=== PATIENT | male | born 1975 | race Caucasian/White ===

== ENCOUNTER 2017-01-09 12:44 | Emergency (ER) | payer BC ==
[2017-01-09] MEDS ORDERED: Sodium Chloride 0.9% 10 ML Syringe FLUSH PRN (14:58)
[2017-01-09] MEDS ORDERED: Sodium Chloride 0.9% 1,000 ML IV ONE (14:59)
--- NOTE | 2017-01-09 15:03 | EDM.PDOC ---
ED HPI GENERAL MEDICAL PROBLEM - General Chief Complaint: ENT Problem Stated Complaint: [id number] FEVER HAD STREP NOT FEELING WELL Time Seen by Provider: 01/09/17 14:59 Source of Information: Reports: Patient History Limitations: Reports: No Limitations - History of Present Illness INITIAL COMMENTS - FREE TEXT/NARRATIVE: 41 yo male presents with fever of 102 yesterday and " not feeling well " today. States that he was recently treated with Penicillin for strep throat, ended treatment on . States that he feels symptoms have not improved. 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, NSAIDS Throat Pain Score (Numeric/FACES): 4 - Related Data Allergies Allergy/AdvReac Type Severity Reaction Status Date / Time No Known Allergies Allergy Verified 07/29/16 06:56 Home Meds: Home Meds Acetaminophen [Tylenol Extra Strength] 500 mg PO Q6H PRN 07/28/16 [History] Amoxicillin/Potassium Clav [Amox-Clav 875-125 mg Tablet] 1 tab PO Q12H 07/28/16 [History] Fluticasone Propionate [Fluticasone Propionate] 1 spray NASBOTH ASDIRECTED PRN 07/28/16 [History] Ibuprofen 400 mg PO Q6H 07/28/16 [History] Phenylephrine/Dm/Acetaminop/Gg [Tylenol Cold & Flu Severe Cplt] 1 tab PO ASDIRECTED PRN 07/28/16 [History] Past Medical History HEENT History: Reports: Allergic Rhinitis, Sinusitis Cardiovascular History: Reports: None Respiratory History: Reports: None Gastrointestinal History: Reports: Colon Polyp, Helicobacter Pylori Genitourinary History: Reports: None Musculoskeletal History: Reports: Other (See Below) Other Musculoskeletal History: HX OF PLANTAR FASCIITIS BILAT. HEEL SPURS BILAT Neurological History: Reports: None Psychiatric History: Reports: None Endocrine/Metabolic History: Reports: Obesity/BMI 30+ Hematologic History: Reports: None Immunologic History: Reports: None Oncologic (Cancer) History: Reports: None - Infectious Disease History Infectious Disease History: Reports: Chicken Pox - Past Surgical History Head Surgeries/Procedures: Reports: None Cardiovascular Surgical History: Reports: None Musculoskeletal Surgical History: Reports: Arthroscopic Knee, Other (See Below) Social & Family History - Tobacco Use Smoking Status *Q: Unknown Ever Smoked Second Hand Smoke Exposure: No - Caffeine Use Caffeine Use: Reports: Soda Other Caffeine Use: AVERAGE INTAKE OF 2-3 BOTTLES OF [place] DAILY - Alcohol Use Days Per Week of Alcohol Use: 1 Number of Drinks Per Day: 6 Total Drinks Per Week: 6 - Recreational Drug Use Recreational Drug Use: Yes Drug Use in Last 12 Months: No ED ROS ENT - Review of Systems Review Of Systems: ROS reveals no pertinent complaints other than HPI. ED EXAM, ENT - Physical Exam Exam: See Below Exam Limited By: No Limitations General Appearance: Alert, WD/WN, No Apparent Distress Eye Exam: Bilateral Eye: PERRL Ears: Normal External Exam, Normal Canal, Hearing Grossly Normal, Normal TMs Nose: Normal Inspection, Normal Mucousa, No Blood Mouth/Throat: Pharyngeal Erythema, Tonsillar Erythema, Tonsillar Exudates, Tonsillar Swelling (2+ bilaterally ) Head: Atraumatic, Normocephalic Neck: Normal Inspection, Supple, Non-Tender, Full Range of Motion Respiratory/Chest: No Respiratory Distress, Lungs Clear, Normal Breath Sounds, No Accessory Muscle Use, Chest Non-Tender Cardiovascular: Normal Peripheral Pulses, Regular Rate, Rhythm, No Edema, No Gallop, No JVD, No Murmur, No Rub GI/Abdominal: Normal Bowel Sounds, Soft, Non-Tender, No Organomegaly, No Distention, No Abnormal Bruit, No Mass Extremities: Normal Inspection, Normal Range of Motion, Non-Tender, No Pedal Edema, Normal Capillary Refill Neurological: Alert, Oriented, CN II-XII Intact, Normal Cognition, Normal Gait, No Motor/Sensory Deficits Skin: Warm, Dry, Intact, Normal Color, No Rash Course - Vital Signs Last Recorded V/S: Last Vital Signs Temp 100.2 F 01/09/17 16:32 Pulse 92 01/09/17 16:32 Resp 20 01/09/17 16:32 BP 130/80 01/09/17 16:32 Pulse Ox 97 01/09/17 16:32 - Orders/Labs/Meds Orders: Active Orders 24 hr Category Date Time Status Chest 2V [CR] Stat Exams 01/09/17 14:58 Taken CULTURE BLOOD [BC] Stat Lab 01/09/17 15:10 Received CULTURE BLOOD [BC] Stat Lab 01/09/17 15:15 Received CULTURE THROAT [RM] Stat Lab 01/09/17 15:20 Received Sodium Chloride 0.9% [Saline Flush] Med 01/09/17 14:58 Active 10 ml FLUSH ASDIRECTED PRN Blood Culture x2 Reflex Set [OM.PC] Stat Oth 01/09/17 14:58 Ordered Saline Lock Insert [OM.PC] Stat Oth 01/09/17 14:57 Ordered Medication Orders Sodium Chloride (Saline Flush) 10 ml FLUSH ASDIRECTED PRN PRN Reason: Keep Vein Open Last Admin: 01/09/17 15:24 Dose: 10 ml Labs: Laboratory Tests 01/09/17 01/09/17 01/09/17 Range/Units 15:10 15:10 15:10 WBC 16.6 H (5.0-10.0) 10^3/uL RBC 4.91 (4.6-6.2) 10^6/uL Hgb 15.4 (14.0-18.0) g/dL Hct 45.7 (40.0-54.0) % MCV 93.1 (80-100) fL MCH 31.4 (27.0-34.0) pg MCHC 33.7 (33.0-35.0) g/dL Plt Count 182 (150-450) 10^3/uL Neut % (Auto) 87.5 H (42.2-75.2) % Lymph % (Auto) 7.7 L (20.5-50.1) % Bradley % (Auto) 4.5 (2-8) % Eos % (Auto) 0.2 L (1.0-3.0) % Baso % (Auto) 0.1 (0.0-1.0) % Sodium 139 (135-145) mmol/L Potassium 4.3 (3.6-5.0) mmol/L Chloride 103 (101-111) mmol/L Carbon Dioxide 24.0 (21.0-31.0) mmol/L Anion Gap 16.3 BUN 13 (7-18) mg/dL Creatinine 1.0 (0.6-1.3) mg/dL Est Cr Clr Drug Dosing 95.00 mL/min Estimated GFR (MDRD) > 60 Glucose 92 (74-105) mg/dL Lactic Acid 0.9 (0.5-2.2) mmol/L Calcium 9.3 (8.4-10.2) mg/dl Meds: Medications Generic Name Dose Route Start Last Admin Trade Name Frenatalia PRN Reason Stop Dose Admin Sodium Chloride 10 ml 01/09/17 14:58 01/09/17 15:24 Saline Flush FLUSH 10 ml ASDIRECTED PRN Administration Keep Vein Open Discontinued Medications Generic Name Dose Route Start Last Admin Trade Name Leela PRN Reason Stop Dose Admin Acetaminophen 650 mg 01/09/17 15:29 01/09/17 15:35 Tylenol PO 01/09/17 15:30 650 mg NOW ONE Administration Sodium Chloride 1,000 mls @ 999 mls/hr 01/09/17 14:59 01/09/17 15:24 Normal Saline IV 01/09/17 15:59 999 mls/hr .BOLUS ONE Administration Ceftriaxone Sodium 1 gm/ 50 mls @ 100 mls/hr 01/09/17 16:09 01/09/17 16:19 Sodium Chloride IV 01/09/17 16:38 100 mls/hr ONETIME ONE Administration - Re-Assessments/Exams Free Text/Narrative Re-Assessment/Exam: 01/09/17 17:22 Strep positive. Rocephine given IV and keflex for 10 day course. Departure - Departure Time of Disposition: 17:25 Disposition: Home, Self-Care 01 Condition: Good Clinical Impression: Strep pharyngitis - Discharge Information Instructions: Strep Throat Forms: ED Department Discharge, ED Department Discharge Additional Instructions: Take the new course of antibiotics for 10 days. return for any worsening symptoms. Continue to take ibuprofen and tylenol for fever. Follow up in5-7 days in clinic. We have swabbed your throat and the results should be returned by the end of the week. We will let you know if we need to change the antibiotic. - My Orders Last 24 Hours: My Active Orders 01/09/17 14:57 Saline Lock Insert [OM.PC] Stat 01/09/17 14:58 Chest 2V [CR] Stat Sodium Chloride 0.9% [Saline Flush] 10 ml FLUSH ASDIRECTED PRN Blood Culture x2 Reflex Set [OM.PC] Stat 01/09/17 15:10 CULTURE BLOOD [BC] Stat 01/09/17 15:15 CULTURE BLOOD [BC] Stat 01/09/17 15:20 CULTURE THROAT [RM] Stat - Assessment/Plan Last 24 Hours: My Active Orders 01/09/17 14:57 Saline Lock Insert [OM.PC] Stat 01/09/17 14:58 Chest 2V [CR] Stat Sodium Chloride 0.9% [Saline Flush] 10 ml FLUSH ASDIRECTED PRN Blood Culture x2 Reflex Set [OM.PC] Stat 01/09/17 15:10 CULTURE BLOOD [BC] Stat 01/09/17 15:15 CULTURE BLOOD [BC] Stat 01/09/17 15:20 CULTURE THROAT [RM] Stat
[2017-01-09] MEDS ORDERED: Acetaminophen 325 MG Tab PO ONE (15:29)
[2017-01-09 15:57] LABS: CHLORIDE,CL 103 mmol/L (101-111); SODIUM,NA 139 mmol/L (135-145)
[2017-01-09] MEDS ORDERED: cefTRIAXone 1 GM in Sodium Chloride 0.9% 50 ML IV ONE (16:09)
[2017-01-09 16:34] VITALS: BP 130/80
== END 2017-01-09 17:37 | disposition home or self-care (01) ==
LOC: DL.ED 12:44
DX: J02.0 Streptococcal pharyngitis (principal); E66.9 Obesity, unspecified; Z79.899 Other long term (current) drug therapy
CPT/HCPCS: 36415; 71020; 80048; 83605; 85025; 87040; 87070; 87430; 96361; 96365; 99284; A9270; J0696; J7030; J7050; 87077

== ENCOUNTER 2023-05-22 23:43 | Emergency (ER) | payer BC ==
[2023-05-22] MEDS ORDERED: Sodium Chloride 0.9% 10 ML Syringe FLUSH PRN (23:53)
[2023-05-23 00:01] LABS: BASOPHILS PERCENT AUTO 0.5 % (0.0-1.0); EOSINOPHILS PERCENT AUTO 4.5 % (1.0-3.0); HEMATOCRIT 47.2 % (40.0-54.0); HEMOGLOBIN 16.6 g/dL (14.0-18.0); LYMPHOCYTES PERCENT AUTO 44.2 % (20.5-50.1); MEAN CORPUSCULAR HEMOGLOBIN 32.5 pg (27.0-34.0); MEAN CORPUSCULAR HGB CONC 35.2 g/dL (33.0-35.0); MEAN CORPUSCULAR VOLUME 92.5 fL (80-100); MONOCYTES PERCENT AUTO 8.8 % (2-8); PLATELET COUNT,PLT 170 10^3/uL (150-450); WHITE BLOOD CELL COUNT,WBC 6.2 10^3/uL (5.0-10.0)
[2023-05-23 00:30] LABS: ANION GAP 13.3 mEq/L (7-13); BLOOD UREA NITROGEN,BUN 13 mg/dL (7-18); CALCIUM 9.1 mg/dL (8.5-10.1); CARBON DIOXIDE,CO2 28 mmol/L (21-32); CHLORIDE,CL 99 mmol/L (98-107); CREATININE 0.91 mg/dL (0.70-1.30); ESTIMATED GFR 105 mL/min (>=60); GLUCOSE RANDOM 163 mg/dL (70-99); MAGNESIUM 1.8 mg/dL (1.8-2.4); POTASSIUM,K 3.3 mmol/L (3.5-5.1); SODIUM,NA 137 mmol/L (136-145); TSH ULTRASENSITIVE 2.15 uIU/mL (0.36-3.74)
[2023-05-23] MEDS ORDERED: Potassium Chloride 10 MEQ Tab.ER PO ONE (00:31)
[2023-05-23] MEDS ORDERED: Metoprolol Tartrate 25 MG Tab PO ONE (00:39)
[2023-05-23 00:43] VITALS: BP 154/88; PULSE 86
== END 2023-05-23 01:04 | disposition home or self-care (01) ==
LOC: DL.ED 23:43
DX: R00.2 Palpitations (principal); E66.9 Obesity, unspecified; Z79.899 Other long term (current) drug therapy; Z68.39 Body mass index [BMI] 39.0-39.9, adult
CPT/HCPCS: 36415; 80048; 83735; 84443; 84484; 85025; 93005; 93010; 99284; 99285; A9270-GY; J3490